=== PATIENT | female | born 1950 | race Hispanic/Latino ===

== ENCOUNTER → 2018-03-01 | Outpatient (CLI) | payer MEDICARE | END | disposition home or self-care (01) | LOC: RAH 09:34 | PROVIDERS: ATTEND Urology | DX: N20.0 Calculus of kidney (principal); I87.8 Other specified disorders of veins; M47.9 Spondylosis, unspecified | CPT/HCPCS: 74018; 76100 ==

== ENCOUNTER 2020-04-05 09:25 | Observation (INO) | payer MEDICARE ==
[~2020-04-05] VITALS: Ht 152.4 cm; Wt 61.1 kg
[2020-04-05 09:37] LABS: BASOPHILS % (AUTO) 0.3 % (0.0-5.0); EOSINOPHILS % (AUTO) 1.9 % (0.0-8.0); HEMATOCRIT 41.7 % (36-48); LYMPHOCYTES % (AUTO) 33.1 % (21.0-51.0); MEAN CORPUSCULAR HEMOGLOBIN 30.2 pg (27.0-33.0); MEAN CORPUSCULAR HGB CONC 31.9 g/dL (32.0-36.0); MEAN CORPUSCULAR VOLUME 94.6 fL (79-99); MONOCYTES % (AUTO) 9.5 % (3.0-13.0); NEUTROPHILS % (AUTO) 54.8 % (40.0-77.0); PLATELET COUNT (AUTO) 231 K/uL (130-400); RED BLOOD CELL COUNT(AUTO) 4.41 MIL/uL (4.00-5.50); RED CELL DISTRIBUTION WIDTH 12.9 % (11.0-15.5); WHITE BLOOD COUNT (AUTO) 9.1 K/uL (4.8-10.8)
[2020-04-05 09:46] LABS: CREATININE 0.8 mg/dL (0.5-1.5); POTASSIUM 3.4 mmol/L (3.5-5.1)
[2020-04-05] MEDS ORDERED: ONDANSETRON HCL 4 MG/2 ML VIAL ONE (09:47)
[2020-04-05 09:49] LABS: INR 0.92 (0.85-1.15)
[2020-04-05 09:51] LABS: ALBUMIN 3.9 g/dL (3.5-5.0); BILIRUBIN,TOTAL 0.2 mg/dL (0.2-1.0); TOTAL PROTEIN, SERUM 8.2 g/dL (6.0-8.3)
[2020-04-05] MEDS ORDERED: ASPIRIN 81MG TAB.CHEW ONE (09:54)
[2020-04-05] MEDS ORDERED: ACETAMINOPHEN 325 MG TAB PO PRN (10:45)
[2020-04-05] MEDS ORDERED: HYDRALAZINE HCL 20 MG/ML VIAL IV PRN (10:45)
[2020-04-05] MEDS ORDERED: NITROGLYCERIN 1GM/1 INCH PACKET TD PRN (10:45)
[2020-04-05] MEDS ORDERED: ZOLPIDEM TARTRATE 5 MG TAB PO PRN (10:45)
[2020-04-05] MEDS ORDERED: LACTULOSE 20 GM/30 ML UDCUP PO PRN (10:45)
[2020-04-05] MEDS ORDERED: HYDROMORPHONE HCL 0.5 MG/0.5 ML ML IVP PRN (10:45)
[2020-04-05 11:30] VITALS: BP 137/68
--- NOTE | 2020-04-05 11:49 | NUR ---
MIO JAMES, IN ROOM ASSESSING/SPEAKING WITH PT. RE:PLAN OF CARE. QUESTIONS ANSWERED BY PARALEGAL SECRETARY. PT.'S SPOUSE AT BEDSIDE.
[2020-04-05] MEDS ORDERED: LIDOCAINE HCL-MPF 1% 2ML VIAL IV PRN (12:15)
[2020-04-05] MEDS ORDERED: POTASSIUM CHLORIDE 10% ELIXIR 20 MEQ/15 ML UDCUP PO PRN (12:15)
[2020-04-05] MEDS ORDERED: POTASSIUM CHLORIDE 20 MEQ ERTAB PO PRN (12:15)
[2020-04-05] MEDS ORDERED: POTASSIUM CHLORIDE 20MEQ/100ML 100 ML IV PRN (12:15)
[2020-04-05] MEDS ORDERED: PROM5SYR PO (12:31)
[2020-04-05] MEDS ORDERED: METF-446 PO (12:31)
[2020-04-05] MEDS ORDERED: FLUT15.845 NS (12:31)
[2020-04-05] MEDS ORDERED: SERT100T12 PO (12:31)
[2020-04-05] MEDS ORDERED: ACET1TAB25 PO (12:31)
[2020-04-05] MEDS ORDERED: METO-409 PO (12:31)
[2020-04-05] MEDS ORDERED: LORA10TA7 PO (12:31)
[2020-04-05] MEDS ORDERED: AMOX1TAB16 PO (12:31)
[2020-04-05] MEDS ORDERED: ASPI-1443 PO (12:31)
[2020-04-05] MEDS ORDERED: SIMV40TA59 PO (12:31)
[2020-04-05] MEDS ORDERED: LISI10TA7 PO (12:31)
[2020-04-05] MEDS ORDERED: ALPR1TAB7 PO (12:31)
[2020-04-05] MEDS ORDERED: MONT10TA26 PO (12:31)
[2020-04-05] MEDS: ACETAMINOPHEN-CODEINE 300/30MG TAB PO PRN (12:47)
--- NOTE | 2020-04-05 13:16 | NUR ---
DR. Lro MARCANO IN ROOM FOR CONSULT, SPEAKING WITH PT., SPOUSE AT BEDSIDE.
[2020-04-05 16:00] VITALS: BP 129/66
[2020-04-05] MEDS: METFORMIN HCL 500 MG TABLET PO SCH (16:31)
[2020-04-05] MEDS ORDERED: KETOROLAC TROMETHAMINE 30MG/ML IM SCH (18:00)
[2020-04-05 19:38] VITALS: BP 141/70
[2020-04-05] MEDS: HEPARIN SODIUM 5000UNIT/ML 1ML VIAL SQ SCH (20:56)
[2020-04-05] MEDS: MONTELUKAST SODIUM 10 MG TAB PO SCH (20:58)
[2020-04-05] MEDS: SIMVASTATIN 20 MG TABLET PO SCH (20:58)
[2020-04-05] MEDS: ONDANSETRON HCL 4 MG/2 ML VIAL IVP PRN (21:56)
[2020-04-05 23:31] VITALS: BP 109/55
[2020-04-06 01:26] LABS: MEAN CORPUSCULAR HEMOGLOBIN 30.5 pg (27.0-33.0); MEAN CORPUSCULAR HGB CONC 32.5 g/dL (32.0-36.0); RED BLOOD CELL COUNT(AUTO) 3.83 MIL/uL (4.00-5.50); RED CELL DISTRIBUTION WIDTH 13.1 % (11.0-15.5); WHITE BLOOD COUNT (AUTO) 10.4 K/uL (4.8-10.8)
[2020-04-06 01:43] LABS: CREATININE 0.6 mg/dL (0.5-1.5); MAGNESIUM 1.6 mg/dL (1.80-2.40); PHOSPHORUS 4.1 mg/dL (2.5-4.9); POTASSIUM 4.2 mmol/L (3.5-5.1)
[2020-04-06] MEDS: MAGNESIUM 2GM PREMIX 50ML 50 ML IV PRN (03:36)
[2020-04-06 03:37] VITALS: BP 123/81
[2020-04-06 07:00] VITALS: BP 163/83
[2020-04-06] MEDS: METFORMIN HCL 500 MG TABLET PO SCH ×2 (07:35→16:17)
[2020-04-06] MEDS ORDERED: ASPIRIN 81MG TAB.CHEW PO SCH (09:00)
[2020-04-06] MEDS: LORATADINE 10 MG TABLET PO SCH (09:48)
[2020-04-06] MEDS: PANTOPRAZOLE SODIUM 40 MG TABLET.DR PO SCH (09:48)
[2020-04-06] MEDS: ALPRAZOLAM 1 MG TAB PO SCH ×2 (09:48→20:34)
[2020-04-06] MEDS: SERTRALINE HCL 50 MG TABLET PO SCH (09:48)
[2020-04-06] MEDS: ASPIRIN 81 MG EC TAB PO SCH (09:48)
[2020-04-06] MEDS: LISINOPRIL 10 MG TABLET PO SCH (09:49)
[2020-04-06] MEDS: METOPROLOL SUCCINATE 50 MG TAB.SR.24H PO SCH (09:49)
[2020-04-06] MEDS: FLUTICASONE PROPIONATE 50MCG/SPRAY 16 GM BOTTLE EN SCH (09:49)
[2020-04-06] MEDS: HEPARIN SODIUM 5000UNIT/ML 1ML VIAL SQ SCH ×2 (09:59→20:48)
[2020-04-06] MEDS ORDERED: REGADENOSON 0.4 MG/5 ML PF SYG IVP SCH (10:15)
[2020-04-06 11:01] VITALS: BP 157/73
[2020-04-06 15:47] VITALS: BP 164/84
[2020-04-06] MEDS: ACETAMINOPHEN-CODEINE 300/30MG TAB PO PRN (18:37)
[2020-04-06] MEDS: ONDANSETRON HCL 4 MG/2 ML VIAL IVP PRN (18:38)
--- NOTE | 2020-04-06 19:26 | NUR ---
cm note met with patient and states resides at home with spouse, independent with adls and self care. no dme. dc plan is back to home. no dc needs. Addendum: 04/06/20 at 1926 by MELLY ISABEL CM Amended: Links added.
[2020-04-06 19:35] VITALS: BP 152/88
--- NOTE | 2020-04-06 20:30 | NUR ---
MD UPDATE RECEIVED CALL FROM SHERIFF ASPEN MIXON RESULTS NORMAL, PATIENT IS OKAY FOR DISCHARGE FROM [facility].
[2020-04-06] MEDS: SIMVASTATIN 20 MG TABLET PO SCH (20:34)
[2020-04-06] MEDS: MONTELUKAST SODIUM 10 MG TAB PO SCH (20:34)
[2020-04-06 23:56] VITALS: BP 122/54
[2020-04-07 03:55] VITALS: BP 131/66
[2020-04-07] MEDS: METFORMIN HCL 500 MG TABLET PO SCH ×2 (07:36→16:39)
[2020-04-07 07:56] VITALS: BP 131/71
[2020-04-07] MEDS: SERTRALINE HCL 50 MG TABLET PO SCH (08:08)
[2020-04-07] MEDS: METOPROLOL SUCCINATE 50 MG TAB.SR.24H PO SCH (08:09)
[2020-04-07] MEDS: PANTOPRAZOLE SODIUM 40 MG TABLET.DR PO SCH (08:09)
[2020-04-07] MEDS: LISINOPRIL 10 MG TABLET PO SCH (08:09)
[2020-04-07] MEDS: LORATADINE 10 MG TABLET PO SCH (08:09)
[2020-04-07] MEDS: ALPRAZOLAM 1 MG TAB PO SCH (08:09)
[2020-04-07] MEDS: ASPIRIN 81 MG EC TAB PO SCH (08:09)
[2020-04-07] MEDS: ACETAMINOPHEN-CODEINE 300/30MG TAB PO PRN ×2 (08:10→13:28)
[2020-04-07] MEDS: HEPARIN SODIUM 5000UNIT/ML 1ML VIAL SQ SCH (08:13)
[2020-04-07] MEDS: FLUTICASONE PROPIONATE 50MCG/SPRAY 16 GM BOTTLE EN SCH (08:31)
[2020-04-07] MEDS: MAGNESIUM 2GM PREMIX 50ML 50 ML IV PRN (09:42)
[2020-04-07 11:48] VITALS: BP 137/75
[2020-04-07] MEDS ORDERED: LISI10TA7 PO (13:18)
== END 2020-04-07 16:53 | disposition home or self-care (01) ==
LOC: EDH 09:25 → EDHIP 10:30 → 4BH 11:34
PROVIDERS: ADMIT Internal Medicine Pulmonary Disease; ATTEND Internal Medicine Pulmonary Disease
DX: I20.8 Other forms of angina pectoris (principal); I16.0 Hypertensive urgency; R09.1 Pleurisy; I10 Essential (primary) hypertension; E11.9 Type 2 diabetes mellitus without complications; E78.5 Hyperlipidemia, unspecified; G43.909 Migraine, unspecified, not intractable, without status migrainosus; Z87.442 Personal history of urinary calculi; Z79.899 Other long term (current) drug therapy
CPT/HCPCS: 36415 ×2; 71045 ×2; 78452; 80048; 80053; 82550; 82948 ×5; 83735; 84100; 84484 ×4; 85025; 85027; 85610; 85730; 93005 ×3; 93017; 93306; 93356; 96365; 96366; 96372 ×3; 96375 ×2; 96376 ×2; 99285; A9500 ×2; G0378 ×15; J0360; J1644 ×4; J1885; J2405 ×3; J2785; J3475 ×2; 96374

== ENCOUNTER → 2023-06-30 | Outpatient (CLI) | payer OTHER ==
[~2023-06-30] MED LIST: ALPR1TAB7 PO; ASPI-1443 PO; FLUT15.845 NS; LISI10TA24 PO; LORA10TA7 PO; METF-446 PO; METO-409 PO; MONT-39 PO; SERT-440 PO; SIMV40TA59 PO
== END | disposition home or self-care (01) ==
LOC: RAH 12:44
PROVIDERS: ATTEND Internal Medicine
DX: M17.11 Unilateral primary osteoarthritis, right knee (principal); M25.561 Pain in right knee; M25.461 Effusion, right knee
CPT/HCPCS: 73721

== ENCOUNTER → 2024-10-17 | Outpatient (CLI) | payer OTHER ==
--- NOTE | 2024-10-17 14:53 | HMCIMG ---
Exam Type: KNEE 3VWS RT Clinical Information: RIGHT KNEE PAIN Comparison: None Findings: There are degenerative changes with narrowing of the medial femorotibial joint space, with subchondral sclerosis. No acute fractures are seen. The soft tissues appear normal. Impression: Degenerative changes medial compartment.
--- NOTE | 2024-10-17 14:55 | HMCIMG ---
Exam Type: SHOULDER COMP 2+VWS RT Clinical Information: RIGHT SHOULDER PAIN Comparison: None FINDINGS: The acromioclavicular joint shows hypertrophy, which may impinge upon the rotator cuff tendon. The glenohumeral joint is preserved. Visualized portions of the humerus, the scapula, and the clavicle as well as the upper ribcage are unremarkable. No pulmonary pathology is noted in the visualized portions of the upper lobe. The soft tissues are preserved. There are no other gross abnormalities. IMPRESSION: Degenerative changes of the acromioclavicular joint with hypertrophy.
== END | disposition home or self-care (01) ==
LOC: RAH 13:32
PROVIDERS: ATTEND Family Medicine
DX: M19.011 Primary osteoarthritis, right shoulder (principal); M17.11 Unilateral primary osteoarthritis, right knee
CPT/HCPCS: 73030; 73562

== ENCOUNTER 2024-12-17 10:12 | Emergency (ER) | payer OTHER ==
[~2024-12-17] VITALS: Ht 152.4 cm; Wt 52.6 kg
[2024-12-17 11:21] LABS: BASOPHILS # (AUTO) 0.03 K/uL (0.00-0.20); BASOPHILS % (AUTO) 0.4 % (0.0-5.0); EOSINOPHILS # (AUTO) 0.09 K/uL (0.00-0.70); EOSINOPHILS % (AUTO) 1.3 % (0.0-8.0); HEMATOCRIT 40.7 % (36-48); IMMATURE GRANULOCYTE ABSOLUTE 0.01 K/uL (0-1); LYMPHOCYTES # (AUTO) 1.8 K/uL (1.0-4.8); LYMPHOCYTES % (AUTO) 27.2 % (21.0-51.0); MEAN CORPUSCULAR HEMOGLOBIN 31.5 pg (27.0-33.0); MEAN CORPUSCULAR HGB CONC 32.9 g/dL (32.0-36.0); MEAN CORPUSCULAR VOLUME 95.5 fL (79-99); MONOCYTES # (AUTO) 0.7 K/uL (0.1-1.0); MONOCYTES % (AUTO) 10.7 % (3.0-13.0); NEUTROPHILS # (AUTO) 4.1 K/uL (1.8-7.7); NEUTROPHILS % (AUTO) 60.3 % (40.0-77.0); PLATELET COUNT (AUTO) 211 K/uL (130-400); RED BLOOD CELL COUNT(AUTO) 4.26 MIL/uL (4.00-5.50); RED CELL DISTRIBUTION WIDTH 12.8 % (11.0-15.5); WHITE BLOOD COUNT (AUTO) 6.7 K/uL (4.8-10.8)
[2024-12-17 11:25] LABS: CREATININE 0.6 mg/dL (0.5-1.0); POTASSIUM 3.6 mmol/L (3.5-5.1)
[2024-12-17 11:36] LABS: INR 0.99 (0.85-1.15); PROTHROMBIN TIME 10.5 SEC (9.6-11.6)
[2024-12-17 11:37] LABS: PARTIAL THROMBOPLASTIN TIME 28.5 SEC (26.3-35.5)
--- NOTE | 2024-12-17 12:18 | HMCIMG ---
CT ABDOMEN/PELVIS W/O CONTRAST HISTORY: Rectal pain COMPARISON: None TECHNIQUE: Multiple sequential axial images of the abdomen and pelvis were obtained from the dome of the diaphragm through symphysis pubis. Patient was not given contrast through intravenous route. Oral contrast was not given. FINDINGS: No pleural effusion is seen bilaterally. There is no evidence of parenchymal disease or pulmonary nodule of the visualized lower lungs. Degenerative changes of the thoracolumbar spine are present. The heart is not enlarged. Mild small bowel dilatation is seen with fluid-filled may be related to enterocolitis. There is diverticulosis. The liver, spleen, adrenal glands and pancreas are unremarkable. There is no evidence of hydronephrosis bilaterally. No evidence of renal stone is seen. Fecal material is seen in the colon. There are normal size retroperitoneal and mesenteric lymph nodes. No ascites is seen. Atherosclerotic changes are present. Pelvic sidewalls are symmetric bilaterally. Bladder is poorly distended. IMPRESSION: 1. Mild small bowel dilatation is seen with fluid-filled may be related to enterocolitis. There is diverticulosis. CT was performed with one or more following dose reduction techniques: automated exposure control, adjustment of the mA and kv according to patient's size, or use of a iterative reconstruction technique.
--- NOTE | 2024-12-17 12:49 | ERN ---
General Chief Complaint: Rectal Bleed Stated Complaint: PAIN IN BEHIND Time Seen by MD: 10:14 Source: patient History of Present Illness Allergies: Coded Allergies: No Known Allergies (Unverified Allergy, Unknown, 04/05/20) Home Meds Active Scripts Lisinopril (Lisinopril) 10 Mg Tablet, 10 MG PO BID for 30 Days, #60 TAB Prov:CHELSEA STARKEY 04/07/20 Reported Medications Fluticasone Propionate (Fluticasone Propionate) 15.8 Ml [place].susp, 50 MCG NS DAILY 04/05/20 Simvastatin (ZOCOR) 40 Mg Tablet, 40 MG PO HS, TAB 04/05/20 Sertraline HCl (Sertraline HCl) 100 Mg Tablet, 100 MG PO DAILY, TAB 04/05/20 Montelukast Sodium (Montelukast Sodium) 10 Mg Tablet, 10 MG PO HS, TAB 04/05/20 Aspirin (Aspirin EC) 81 Mg Tablet.dr, 81 MG PO DAILY, TAB 04/05/20 Metoprolol Succinate (Metoprolol Succinate) 100 Mg Tab.er.24h, 100 MG PO DAILY, TAB 04/05/20 Loratadine (Loratadine) 10 Mg Tablet, 10 MG PO DAILY, TAB 04/05/20 Alprazolam (Alprazolam) 1 Mg Tablet, 1 MG PO BID, TAB 04/05/20 Metformin HCl (Metformin HCl) 1,000 Mg Tablet, 1000 MG PO BIDMEALS, TAB 04/05/20 Past Medical History Past Medical History: Anxiety, Diabetes-Type II, High Cholesterol, Hypertension Past Surgical History: Hysterectomy Results Laboratory and Microbiology Lab and Micro Result Laboratory Tests Test 12/17/24 10:53 White Blood Count 6.7 K/uL (4.8-10.8) Red Blood Count 4.26 MIL/uL (4.00-5.50) Hemoglobin 13.4 g/dL (12.0-16.0) Hematocrit 40.7 % (36-48) Mean Corpuscular Volume 95.5 fL (79-99) Mean Corpuscular Hemoglobin 31.5 pg (27.0-33.0) Mean Corpuscular Hemoglobin Concent 32.9 g/dL (32.0-36.0) Red Cell Distribution Width 12.8 % (11.0-15.5) Platelet Count 211 K/uL (130-400) Mean Platelet Volume 11.0 fL (7.5-10.5) H Immature Granulocyte % (Auto) 0.1 % (0-1) Neutrophils (%) (Auto) 60.3 % (40.0-77.0) Lymphocytes (%) (Auto) 27.2 % (21.0-51.0) Monocytes (%) (Auto) 10.7 % (3.0-13.0) Eosinophils (%) (Auto) 1.3 % (0.0-8.0) Basophils (%) (Auto) 0.4 % (0.0-5.0) Neutrophils # (Auto) 4.1 K/uL (1.8-7.7) Lymphocytes # (Auto) 1.8 K/uL (1.0-4.8) Monocytes # (Auto) 0.7 K/uL (0.1-1.0) Eosinophils # (Auto) 0.09 K/uL (0.00-0.70) Basophils # (Auto) 0.03 K/uL (0.00-0.20) Absolute Immature Granulocyte (auto 0.01 K/uL (0-1) Nucleated Red Blood Cells 0.0 % (0.0-0.19) Prothrombin Time 10.5 SEC (9.6-11.6) Prothromb Time International Ratio 0.99 (0.85-1.15) Activated Partial Thromboplast Time 28.5 SEC (26.3-35.5) Sodium Level 139 mmol/L (136-145) Potassium Level 3.6 mmol/L (3.5-5.1) Chloride Level 101 mmol/L (101-111) Carbon Dioxide Level 33 mmol/L (21-32) H Blood Urea Nitrogen 16 mg/dL (7-18) Creatinine 0.6 mg/dL (0.5-1.0) Glomerular Filtration Rate Calc 95 mL/min (>90) Random Glucose 131 mg/dL (70-105) H Total Calcium 9.0 mg/dL (8.5-10.1) ED Course Orders Procedure Category Date Status Time Cbc With Differential LAB 12/17/24 Complete 10: Basic Metabolic Panel LAB 12/17/24 Complete 10: Pt And Ptt LAB 12/17/24 Complete 10: Ct Abdomen/Pelvis W/O CT 12/17/24 Resulted Contrast 11:22 Morphine 2mg Syg PHA 12/17/24 In Process (Morphine 2mg Syg) 13:00 Current Medications Medications (Trade) Dose Ordered Sig/Jefry Route PRN Reason Start Time Stop Time Status Last Admin Dose Admin Morphine Sulfate (morPHINE 2MG SYG) 2 mg ONCE ONCE IVP 12/17/24 13:00 12/17/24 13:01 Vital Signs Date Time Temp Pulse Resp B/P (MAP) Pulse Ox O2 Delivery O2 Flow Rate FiO2 12/17/24 10:22 97.9 84 20 117/74 97 Room Air 0 DX & DISP Disposition: Discharge Departure Impression: Primary Impression: Rectal pain Condition: Stable Additional Instructions: Discharge home. Rest. Follow up with primary care DrHector in 24 hours. Return to the ER for any acute changes or worsening symptoms. If any medications were prescribed take as directed. Okay to continue home medications unless otherwise discussed during your visit in the emergency room today. Patient was also advised to follow-up with primary care physician in 1 to 2 days for continued monitoring. Referrals: MOOKIE STARKS (PCP) I participated in the following activities of this patient's care: For this patient encounter, I reviewed the PA or STACKER OPERATOR documentation, treatment plan, and medical decision making. I did not have [id number] time with this patient. I will sign as the reviewing DrHector And agree with the treatment plan and disposition. YOCASTA PITTS Dec 17, 2024 12:49
[2024-12-17] MEDS ORDERED: morPHINE 2 MG SYG IVP ONE (13:00)
[2024-12-17] MEDS: morPHINE 2 MG SYG IM ONE (13:09)
[2024-12-17 13:12] VITALS: BP 142/63; PULSE 70; RESP 18; TEMP 98; O2SAT 99
== END 2024-12-17 13:16 | disposition home or self-care (01) ==
LOC: EDH 10:12
DX: K62.5 Hemorrhage of anus and rectum (principal); F41.9 Anxiety disorder, unspecified; E11.9 Type 2 diabetes mellitus without complications; E78.00 Pure hypercholesterolemia, unspecified; I10 Essential (primary) hypertension; Z79.82 Long term (current) use of aspirin; Z79.899 Other long term (current) drug therapy; Z90.710 Acquired absence of both cervix and uterus
CPT/HCPCS: 99285; 74176; 80048; 85025; 85610; 85730; 36415; 96372; J2270

== ENCOUNTER → 2025-04-24 | Outpatient (CLI) | payer OTHER | END | disposition home or self-care (01) | LOC: RAH 10:37 | PROVIDERS: ATTEND Physician Assistant Medical | DX: Z12.31 Encounter for screening mammogram for malignant neoplasm of breast (principal) | CPT/HCPCS: 77067 ==

== ENCOUNTER 2025-05-28 21:00 | Emergency (ER) | payer OTHER ==
[~2025-05-28] VITALS: Ht 152.4 cm; Wt 52.2 kg
[2025-05-28] MEDS: LACTATED RINGERS IV ONE (21:47)
[2025-05-28] MEDS: MAGNESIUM 2GM PREMIX 50ML 50 ML IV SCH (21:48)
--- NOTE | 2025-05-28 22:03 | ERN ---
General Chief Complaint: Headache Stated Complaint: C/O HEADACHE FOR PAST 2 WKS Time Seen by MD: 21:13 History of Present Illness Initial Comments 74-year-old female who comes in today with a chief complaint of headache and migraine. Patient has a says she has tried [id number] medicine including Fioricet and Nurtec . Patient would like to get some relief Allergies: Coded Allergies: No Known Allergies (Unverified Allergy, Unknown, 04/05/20) Home Meds Active Scripts Lisinopril (Lisinopril) 10 Mg Tablet, 10 MG PO BID for 30 Days, #60 TAB Prov:CHELSEA STARKEY 04/07/20 Reported Medications Fluticasone Propionate (Fluticasone Propionate) 15.8 Ml [place].susp, 50 MCG NS DAILY 04/05/20 Simvastatin (ZOCOR) 40 Mg Tablet, 40 MG PO HS, TAB 04/05/20 Sertraline HCl (Sertraline HCl) 100 Mg Tablet, 100 MG PO DAILY, TAB 04/05/20 Montelukast Sodium (Montelukast Sodium) 10 Mg Tablet, 10 MG PO HS, TAB 04/05/20 Aspirin (Aspirin EC) 81 Mg Tablet.dr, 81 MG PO DAILY, TAB 04/05/20 Metoprolol Succinate (Metoprolol Succinate) 100 Mg Tab.er.24h, 100 MG PO DAILY, TAB 04/05/20 Loratadine (Loratadine) 10 Mg Tablet, 10 MG PO DAILY, TAB 04/05/20 Alprazolam (Alprazolam) 1 Mg Tablet, 1 MG PO BID, TAB 04/05/20 Metformin HCl (Metformin HCl) 1,000 Mg Tablet, 1000 MG PO BIDMEALS, TAB 04/05/20 Past Medical History Past Medical History: Diabetes-Type II, High Cholesterol, Heart Disease, Migraines, Other Medical History Other: SEASONAL ALLERGIES Past Surgical History: Hysterectomy ROS Dictation Constitutional: Negative for fever,chills, and weight loss Eyes: Negative for injury, pain,redness, and discharge ENT: Negative for injury,pain or swelling Cardiovascular: Negative for chest pain, palpitations, and edema Respiratory: Negative for shortness of breath, cough, and wheezing, Abdomen/GI: Negative for abdominal pain, nausea, vomiting, diarrhea, and con stipation Back: Negative for injury and pain : Negative for injury, bleeding and discharge MS/Extremity: Negative for injury and deformity Skin: Negative for rash, and discoloration Neuro: Positive headache Psych: Negative for suicide ideation, homicidal ideation, and hallucinations Physical Exam Physical Exam Dictation General: awake, alert, NAD Head/Face: Normocephalic, atraumatic Eyes: PERRL, EOMI, vision at baseline ENT: oral cavity clear, TMs clear, no signs of infection Neck: Trachea midline, supple, no nuchal rigidity Cardiovascular: RRR, normal S1/S2, No MRGs, no JVD Respiratory: CTAB, no respiratory distress, No rales or wheezes Abdomen: Soft, non-tender, non-distended, normal bowel sounds, no guarding or rebound. Skin: Warm, dry, normal turgor, no rash MS/Extremity: Pulses equal, no cyanosis, neurovascular intact, FROM Neuro: COAx4, GCS 15, strength 5/5, CN 2-12 intact, normal cerebellar exam, normal gait, Psych: Normal behavior, mood, and affect normal MDM Patient was given IV Reglan, Benadryl, IV magnesium and Toradol which did improve/resolve symptoms MDM: Differential diagnosis: Migraine Rationale: Tests considered and ordered secondary to shared decision making include: Previous outside records reviewed: Old ER visits. Risk of complication and/or morbidity or mortality of patient management: None Medications-Per medication reconciliation Need for hospitalization: Patient does not meet criteria for hospitalization. Need for emergency major/minor surgery: No There are no social concerns with this patient. Prescription drug management Prescriptions will include symptomatic care Patient's prior external medical records from other ER visits were reviewed by me as indicated. Prior testing and results from previous visits were reviewed. Prior tests were taken into account with medical decision making and resource u tilization, independent historian/historians were used to obtain complete medical history. I independently interpreted the test that were performed, results were reviewed by me and considered findings on radiology if ordered. Medical management and examination interpretation discussions were had by me with other qualified healthcare professionals as indicated for the patient's ca re. ED Course Orders Procedure Category Date Status Time Metoclopramide 10 PHA 05/28/25 Complete Mg/2 Ml Vial (Reglan 1 21:30 Diphenhydramine Hcl PHA 05/28/25 Complete (Benadryl Inj) 21:30 Ketorolac PHA 05/28/25 Complete Tromethamine 15mg/Ml 21:30 Lactated Ringers PHA 05/28/25 In Process 1000ml (Lactated 21:30 Magnesium 2gm Premix PHA 05/28/25 In Process 50ml (Magnesium 2gm 21:30 Current Medications Medications (Trade) Dose Ordered Sig/Jefry Route PRN Reason Start Time Stop Time Status Last Admin Dose Admin Diphenhydramine HCl (BENAdryl INJ) 25 mg ONCE ONCE IV 05/28/25 21:30 05/28/25 21:37 DC 05/28/25 21:47 Ketorolac Tromethamine (toRADol) 15 mg ONCE ONCE IV 05/28/25 21:30 05/28/25 21:37 DC 05/28/25 21:47 Lactated Ringer's 456 ml @ 152 mls/hr ONCE ONCE IV 05/28/25 21:30 05/29/25 00:29 05/28/25 21:47 Magnesium Sulfate 50 ml @ 0 mls/hr PROTOCOL IV 05/28/25 21:30 06/27/25 21:29 05/28/25 21:48 Metoclopramide HCl (regLAN 10MG IV) 10 mg ONCE ONCE IVP 05/28/25 21:30 05/28/25 21:37 DC 05/28/25 21:47 Vital Signs Date Time Temp Pulse Resp B/P (MAP) Pulse Ox O2 Delivery O2 Flow Rate FiO2 05/28/25 21:05 98.2 70 20 139/70 97 Room Air DX & DISP Disposition: Discharge Departure Impression: Primary Impression: Migraine Condition: Stable Referrals: MOOKIE STARKS (PCP) MIREYA CERVANTES MD May 28, 2025 22:03
[2025-05-28 23:14] VITALS: BP 135/74; PULSE 72; RESP 18; TEMP 98.5; O2SAT 99
== END 2025-05-28 23:15 | disposition home or self-care (01) ==
LOC: EDH 21:00
DX: G43.909 Migraine, unspecified, not intractable, without status migrainosus (principal); E11.9 Type 2 diabetes mellitus without complications; E78.00 Pure hypercholesterolemia, unspecified; Z79.82 Long term (current) use of aspirin; Z79.899 Other long term (current) drug therapy; Z90.710 Acquired absence of both cervix and uterus
CPT/HCPCS: 99283; 96374; 96375; J1885; J3475; J7120; J1200; J2765

== ENCOUNTER 2025-06-05 12:01 | Emergency (ER) | payer OTHER ==
[~2025-06-05] VITALS: Ht 152.4 cm; Wt 51.7 kg
[2025-06-05] MEDS: PROCHLORPERAZINE 10MG/2ML INJ IV ONE (12:31)
[2025-06-05] MEDS: 0.9%NACL 1000ML 1,000 ML IV ONE (12:31)
[2025-06-05 12:33] LABS: IMMATURE GRANULOCYTE ABSOLUTE 0.01 K/uL (0-1); NUCLEATED RED BLOOD CELLS 0.0 % (0.0-0.19); PLATELET COUNT (AUTO) 240 K/uL (130-400); RED BLOOD CELL COUNT(AUTO) 4.22 MIL/uL (4.00-5.50); RED CELL DISTRIBUTION WIDTH 12.6 % (11.0-15.5); WHITE BLOOD COUNT (AUTO) 6.4 K/uL (4.8-10.8)
--- NOTE | 2025-06-05 12:55 | ERN ---
General Chief Complaint: Headache Stated Complaint: MIGRAINE Time Seen by MD: 12:04 Source: patient, family History of Present Illness Initial Comments This is a 74-year-old female coming in with a headache. Patient states that she has had this headache for many many many years was treated with medication for migraines. Patient states that she recently was switched to another medications for migraines but believes it isn't working. Allergies: Coded Allergies: No Known Allergies (Unverified Allergy, Unknown, 04/05/20) Home Meds Active Scripts Lisinopril (Lisinopril) 10 Mg Tablet, 10 MG PO BID for 30 Days, #60 TAB Prov:CHELSEA STARKEY 04/07/20 Reported Medications Fluticasone Propionate (Fluticasone Propionate) 15.8 Ml [place].susp, 50 MCG NS DAILY 04/05/20 Simvastatin (ZOCOR) 40 Mg Tablet, 40 MG PO HS, TAB 04/05/20 Sertraline HCl (Sertraline HCl) 100 Mg Tablet, 100 MG PO DAILY, TAB 04/05/20 Montelukast Sodium (Montelukast Sodium) 10 Mg Tablet, 10 MG PO HS, TAB 04/05/20 Aspirin (Aspirin EC) 81 Mg Tablet.dr, 81 MG PO DAILY, TAB 04/05/20 Metoprolol Succinate (Metoprolol Succinate) 100 Mg Tab.er.24h, 100 MG PO DAILY, TAB 04/05/20 Loratadine (Loratadine) 10 Mg Tablet, 10 MG PO DAILY, TAB 04/05/20 Alprazolam (Alprazolam) 1 Mg Tablet, 1 MG PO BID, TAB 04/05/20 Metformin HCl (Metformin HCl) 1,000 Mg Tablet, 1000 MG PO BIDMEALS, TAB 04/05/20 Past Medical History Past Medical History: Anxiety, Diabetes-Type II, High Cholesterol, Hypertension, Migraines Medical History Other: SEASONAL ALLERGIES Past Surgical History: Hysterectomy Results Laboratory and Microbiology Lab and Micro Result Laboratory Tests Test 06/05/25 12:03 06/05/25 12:21 White Blood Count 6.4 K/uL (4.8-10.8) Red Blood Count 4.22 MIL/uL (4.00-5.50) Hemoglobin 13.2 g/dL (12.0-16.0) Hematocrit 40.1 % (36-48) Mean Corpuscular Volume 95.0 fL (79-99) Mean Corpuscular Hemoglobin 31.3 pg (27.0-33.0) Mean Corpuscular Hemoglobin Concent 32.9 g/dL (32.0-36.0) Red Cell Distribution Width 12.6 % (11.0-15.5) Platelet Count 240 K/uL (130-400) Mean Platelet Volume 11.4 fL (7.5-10.5) H Immature Granulocyte % (Auto) 0.2 % (0-1) Neutrophils (%) (Auto) 60.5 % (40.0-77.0) Lymphocytes (%) (Auto) 28.7 % (21.0-51.0) Monocytes (%) (Auto) 9.8 % (3.0-13.0) Eosinophils (%) (Auto) 0.3 % (0.0-8.0) Basophils (%) (Auto) 0.5 % (0.0-5.0) Neutrophils # (Auto) 3.9 K/uL (1.8-7.7) Lymphocytes # (Auto) 1.8 K/uL (1.0-4.8) Monocytes # (Auto) 0.6 K/uL (0.1-1.0) Eosinophils # (Auto) 0.02 K/uL (0.00-0.70) Basophils # (Auto) 0.03 K/uL (0.00-0.20) Absolute Immature Granulocyte (auto 0.01 K/uL (0-1) Nucleated Red Blood Cells 0.0 % (0.0-0.19) Urine Color COLORLESS (YELLOW) Urine Appearance CLEAR (CLEAR) Urine pH 6.0 (5.0-8.0) Urine Specific [place] 1.006 (1.001-1.031) Urine Protein NEGATIVE mg/dL (NEGATIVE) Urine Glucose (UA) NEGATIVE mg/dL (NEGATIVE) Urine Ketones NEGATIVE mg/dL (NEGATIVE) Urine Occult Blood NEGATIVE (NEGATIVE) Urine Nitrate NEGATIVE (NEGATIVE) Urine Bilirubin NEGATIVE mg/dL (NEGATIVE) Urine Urobilinogen 0.2 mg/dL (0.2-1.0) Urine Leukocyte Esterase NEGATIVE [place]/uL Sodium Level 141 mmol/L (136-145) Potassium Level 3.6 mmol/L (3.5-5.1) Chloride Level 105 mmol/L (101-111) Carbon Dioxide Level 30 mmol/L (21-32) Blood Urea Nitrogen 16 mg/dL (7-18) Creatinine 0.4 mg/dL (0.5-1.0) L Glomerular Filtration Rate Calc 105 mL/min (>90) Random Glucose 144 mg/dL (70-105) H Total Calcium 8.3 mg/dL (8.5-10.1) L Labs Reviewed?: Yes MDM MDM: Differential diagnosis: Tension headache, history of migraine, Rationale: Tests considered and ordered secondary to shared decision making include: Previous outside records reviewed: Old ER visits. Risk of complication and/or morbidity or mortality of patient management: None Medications-Per medication reconciliation Need for hospitalization: Patient does not meet criteria for hospitalization. Need for emergency major/minor surgery: No Patient is a 74-year-old female coming in complaining of a headache. Per patient he has been she has been seen by her PCP started on a different medication that she usually uses. She states that she used other medication for a long time and the PCP took her off of it. Since then her headaches have gotten worse and have not been controlled. Throughout ER visit patient has been stable patient received a migraine cocktail states he feels much better has been pain-free. I did advised patient to follow up with neurology for long-term management of migraines. Patient will be discharged in stable condition with a diagnosis of migraine headache with tension headache. ED Course Orders Procedure Category Date Status Time Cbc With Differential LAB 06/05/25 Complete 12:10 Urinalysis Profile LAB 06/05/25 Complete 12:10 0.9%Nacl 1000ml (Ns PHA 06/05/25 Complete 1000ml) 12:30 Diphenhydramine Hcl PHA 06/05/25 Complete (Benadryl Inj) 12:30 Prochlorperazine PHA 06/05/25 Complete 10mg/2ml Inj 12:30 Basic Metabolic Panel LAB 06/05/25 Complete 12:40 Current Medications Medications (Trade) Dose Ordered Sig/Jefry Route PRN Reason Start Time Stop Time Status Last Admin Dose Admin Diphenhydramine HCl (BENAdryl INJ) 25 mg ONCE ONCE IV 06/05/25 12:30 06/05/25 12:31 DC 06/05/25 12:31 Prochlorperazine Edisylate (Compazine 10mg/ 2ml Inj) 10 mg ONCE ONCE IV 06/05/25 12:30 06/05/25 12:31 DC 06/05/25 12:31 Sodium Chloride 1,000 ml @ 0 mls/hr ONCE ONCE IV 06/05/25 12:30 06/05/25 12:31 DC 06/05/25 12:31 Vital Signs Date Time Temp Pulse Resp B/P (MAP) Pulse Ox O2 Delivery O2 Flow Rate FiO2 06/05/25 12:07 98.4 90 16 145/75 96 Room Air* 0 21 06/05/25 12:03 98.4 90 16 145/75 96 Room Air 0 DX & DISP Disposition: Discharge Departure Impression: Primary Impression: Migraine Additional Impression: Tension headache Condition: Stable Scripts Diclofenac Sodium (Voltaren Arthritis Pain) 1 % Gel..gram. 5 GM TP BID for 7 Days, #1 TUBE Prov: ALPESH AGGARWAL MD 06/05/25 Additional Instructions: FOLLOW-UP WITH PRIMARY CARE PROVIDER IN 1 TO 2 DAYS. TAKE MEDICATIONS DIRECTED HERE IN THE EMERGENCY ROOM. OKAY TO CONTINUE HOME MEDICATIONS UNLESS OTHERWISE DISCUSSED DURING YOUR VISIT IN THE EMERGENCY ROOM TODAY. RETURN TO YOUR NEAREST EMERGENCY ROOM IF SYMPTOMS WORSEN OR IF THERE IS NO IMPROVEMENT. CALL 911 IF YOU NEED IMMEDIATE ASSISTANCE. TAKE TYLENOL [id number] NEEDED AND IF NO CONTRAINDICATIONS ARE PRESENT. INCREASE ORAL HYDRATION. A WOUND CULTURE OR URINE CULTURE WAS ORDERED HERE IN THE EMERGENCY ROOM DEPARTMENT PLEASE FOLLOW-UP WITH PRIMARY CARE PROVIDER AND ADVISE THEM TO GET REPORTS FROM OUR FACILITY. IF YOU HAD ANY JAIME WRAP/SPLINTS THAT WERE APPLIED HERE, PLEASE DO NOT REMOVE THEM UNTIL YOU SEE YOUR PRIMARY CARE OR SPECIALTY. Referrals: Referrals: MARIANA MARTINEZ PA-C (PCP) MINESH PONCE MD, ISABEL MD Jun 05, 2025 12:55
[2025-06-05 12:58] LABS: APPEARANCE,URINE CLEAR (CLEAR); GLUCOSE, URINE (UA) NEGATIVE (NEGATIVE); LEUKOCYTE ESTERASE ,URINE NEGATIVE Leu/uL (NEGATIVE); NITRATE,URINE NEGATIVE (NEGATIVE); OCCULT BLOOD,URINE NEGATIVE (NEGATIVE)
[2025-06-05 13:00] LABS: ADD UA MICROSCOPIC NO
[2025-06-05 13:21] LABS: CREATININE 0.4 mg/dL (0.5-1.0); GLOMERULAR FILTR. RATE CALC 105.0 mL/min (>90); GLUCOSE,RANDOM 144.0 mg/dL (70-105); SODIUM SERUM 141.0 mmol/L (136-145); UREA NITROGEN, BLOOD 16.0 mg/dL (7-18)
[2025-06-05] MEDS ORDERED: DICL20GE TP (13:35)
[2025-06-05 13:41] VITALS: BP 143/75; PULSE 86; RESP 16; TEMP 98.4; O2SAT 96
== END 2025-06-05 13:55 | disposition home or self-care (01) ==
LOC: EDH 12:01
DX: G43.909 Migraine, unspecified, not intractable, without status migrainosus (principal); G44.209 Tension-type headache, unspecified, not intractable; F41.9 Anxiety disorder, unspecified; E11.9 Type 2 diabetes mellitus without complications; E78.00 Pure hypercholesterolemia, unspecified; I10 Essential (primary) hypertension; Z90.710 Acquired absence of both cervix and uterus; Z79.899 Other long term (current) drug therapy; Z79.82 Long term (current) use of aspirin
CPT/HCPCS: 99283; 96374; 96361 ×2; 96375; 80048; 85025; 81003; 36415; J1200; J0780; 99284